=== PATIENT | male | born 1995 | race Caucasian/White ===

== ENCOUNTER 2018-02-22 14:50 | Emergency (ER) | payer OTHER ==
[~2018-02-22] VITALS: Ht 182.9 cm; Wt 70.5 kg
[2018-02-22 14:54] VITALS: BP 111/64
[2018-02-22] MEDS ORDERED: LIDOCAINE-MPF 1%, 5ML INFIL ONE (15:00)
[2018-02-22] MEDS ORDERED: CEFAZOLIN 1,000 MG IM ONE (15:00)
[2018-02-22] MEDS ORDERED: CEFAZOLIN 1,000 MG ONE (15:24)
[2018-02-22] MEDS ORDERED: LIDOCAINE-MPF 2% ,5ML ONE ×2 (15:24→17:03)
[2018-02-22] MEDS ORDERED: BACITRACIN ZINC OINT 500U/GM, 0.9 GM ONE (17:03)
== END 2018-02-22 17:35 | disposition home or self-care (01) ==
LOC: ED 17:05
DX: S61.011A Laceration without foreign body of right thumb without damage to nail, initial encounter (principal); W45.8XXA Other foreign body or object entering through skin, initial encounter; Y93.89 Activity, other specified; Y92.099 Unspecified place in other non-institutional residence as the place of occurrence of the external cause; Y99.8 Other external cause status
CPT/HCPCS: 12042; 73110; 96372; 99284; J0690